=== PATIENT | female | born 1965 | race Caucasian/White ===

== ENCOUNTER 2024-09-07 06:40 | Observation (INO) ==
--- NOTE | 2024-07-18 13:32 | PAT Medication Instructions ---
Medication Instructions Date of Service July 18, 2024 Home Medications albuterol 90 mcg/actuation aerosol inhaler 90 mcg inhalation QID PRN sob cholecalciferol (vitamin D3) 50 mcg (2,000 unit) tablet (Vitamin D3) 50 mcg PO QAM ibuprofen 800 mg tablet 800 mg PO TID PRN Pain lysine 500 mg tablet 500 mg PO DAILY PRN Cold Sores meloxicam 15 mg tablet 15 mg PO QAM methylprednisolone 4 mg tablets in a dose pack (Medrol (Arnaldo)) 4 mg PO DAILY Continue as directed methylprednisolone 4 mg tablets in a dose pack (Medrol (Arnaldo)) 4 mg PO DAILY ASK your surgeon for instructions ibuprofen 800 mg tablet 800 mg PO TID PRN Pain meloxicam 15 mg tablet 15 mg PO QAM STOP taking 2 weeks before surgery (or as soon as possible if surgery is within 2 weeks) lysine 500 mg tablet 500 mg PO DAILY PRN Cold Sores DO NOT take the morning of surgery cholecalciferol (vitamin D3) 50 mcg (2,000 unit) tablet (Vitamin D3) 50 mcg PO QAM Take morning of surgery With a small sip of water, OTHERWISE NOTHING TO EAT OR DRINK AFTER MIDNIGHT: albuterol 90 mcg/actuation aerosol inhaler 90 mcg inhalation QID PRN sob (use if needed; please bring rescue inhaler with you to hospital day of surgery if possible) Take evening before surgery albuterol 90 mcg/actuation aerosol inhaler 90 mcg inhalation QID PRN sob (if needed) Other Notes If you have any questions please call us at [phone] or [phone] or [phone] or [phone]
--- NOTE | 2024-07-29 13:32 | Anesthesiology Consultation ---
Date of Service July 29, 2024 Assessment & Plan (1) Encounter for pre-operative examination: - Infectious disease screening: Per assessment on 07/29/24: No known recent infectious disease contacts or current infectious disease symptoms. - Outpatient joint assessment: Pt currently scheduled for inpatient pathway. If surgeon requests review for outpatient joint pathway, patient is an acceptable candidate for outpatient joint program from anesthesia standpoint pending surgeon's office assessment that patient is motivated, has good support and completes [facility] preop requirements. - Patient acceptable risk for surgery pending surgeon-ordered PCP preop evaluation (Dr. Lee Jacobsen/Bry, 08/17) Chart Review Chart Review: Patient NOT seen in Pre Admission Testing History Surgery Operation Date: 09/07/24 09:00 Proposed Procedures p Left Cemented Total Knee Arthroplasty - Tejas Forman MD Height/Weight Height: 5 ft 6 in Weight: 80 kg Allergies Allergy/AdvReac Type Severity Reaction Status Date / Time No Known Allergies Allergy Verified 07/18/24 12:44 Medications Home Medications Medication Instructions Recorded Confirmed Last Taken albuterol 90 mcg/actuation aerosol 90 mcg inhalation QID PRN sob 07/18/24 07/18/24 Unknown inhaler cholecalciferol (vitamin D3) 50 50 mcg PO QAM 07/18/24 07/18/24 Unknown mcg (2,000 unit) tablet (Vitamin D3) ibuprofen 800 mg tablet 800 mg PO TID PRN Pain 07/18/24 07/18/24 Unknown lysine 500 mg tablet 500 mg PO DAILY PRN Cold Sores 07/18/24 07/18/24 Unknown meloxicam 15 mg tablet 15 mg PO QAM 07/18/24 07/18/24 Unknown Past Medical History Medical History Asthma History of COVID-19 x2 last episode 10/2023 Osteoarthritis Exercise / Class Metabolic Activity II 4-5 Yardwork/Stairs/Walk up hill (one FS (No CP, no SOB)) Past Surgical History Surgical History Hx laparoscopic cholecystectomy 1993 Hx of colonoscopy Past Anesthesia History No Hx of Anesthesia Complications and No Family Hx of Anesthesia Complications History of PONV No Hx of PONV and No Hx of Motion Sickness Social History Smoking Status: Never smoker Do You Dip or Chew Tobacco: No Hx Alcohol Use: Yes alcohol intake frequency: holidays/special occasions only Hx Substance Use: No substance use type: does not use Review of Systems Patient denies chest pain, shortness of breath, dyspnea on exertion, fever, chills, cough, wheezing, palpitations. Physical Exam Vital Signs BP 121/76 P 80 TEMP 97.7 SP02 96%RA RESP 16 Physical Full cervical extension range of motion. Full TMJ range of motion. TMD > 3.5 finger breaths Mallampati Score II Dentition: intact, left lower molar cap Lungs: clear throughout to auscultation Cardiac: regular rate and rhythm, no murmurs noted Spine: normal Carotid arteries: negative bruit Extremities: no LE edema Lab Results Anesthesia Preop Results Results Anesthesia Widget: WBC 7.74 K/ul (4.8-10.8) 07/29/24 Hgb 14.2 g/dl (12.0-16.0) 07/29/24 Hct 42.5 % (37.0-47.0) 07/29/24 Plt 241 K/uL (130-400) 07/29/24 Na 142 mmol/L (136-145) 07/29/24 K 3.8 mmol/L (3.5-5.1) 07/29/24 Cl 106 mmol/L (98-107) 07/29/24 CO2 29 mmol/L (21-32) 07/29/24 BUN 14 mg/dl (6-23) 07/29/24 Creat 0.79 mg/dl (0.6-1.2) 07/29/24 Glucose Level 80 mg/dl (70-99(Fasting)) 07/29/24 PT 10.4 Seconds (9.0-12.0) 07/29/24 PTT 25 Seconds (21-31) 07/29/24 INR 1.0 (0.9-1.1) 07/29/24 Urine Color Yellow 07/29/24 Urine Appearance Clear (Clear) 07/29/24 Urine pH 7.0 (4.5-7.5) 07/29/24 Urine Specific [place] 1.011 (1.000-1.030) 07/29/24 Urine Protein Negative (Negative) 07/29/24 Urine Glucose (UA) Negative (Negative) 07/29/24 Urine Ketones Negative (Negative) 07/29/24 Urine Blood Negative (Negative) 07/29/24 Urine Nitrite Negative (Negative) 07/29/24 Urine Bilirubin Negative (Negative) 07/29/24 Urine Urobilinogen Negative (Negative) 07/29/24 Urine Leukocyte Esterase Trace (Negative) H 07/29/24 Urine WBC (Auto) 0-5 /hpf (0-5) 07/29/24 Urine RBC (Auto) 0-2 /hpf (0-2) 07/29/24 Urine Hyaline Casts (Auto) 0-2 /lpf (0-2) 07/29/24 Urine Epithelial Cells (Auto) 0-2 /hpf (0-2) 07/29/24 Urine Bacteria (Auto) None Seen (None Seen) 07/29/24 Blood Type B Positive 07/29/24 Antibody Screen NEGATIVE 07/29/24 Testing Electrocardiogram Date: 07/29/24 NSR at 78bpm. NS STA. Chest X-Ray Date: 07/29/24 FINDINGS: Lung volumes are normal. Lungs are clear. There is no pneumothorax or pleural effusion. Cardiac size is normal. Mediastinal contours are normal. There is no evidence for pulmonary edema. IMPRESSION: No acute cardiopulmonary findings.
--- NOTE | 2024-09-07 06:31 | History & Physical Bridge Note ---
Date of Service September 07, 2024 History & Physical Bridge Note I have examined the patient, reviewed the History & Physical and in the interval since the performance of the History & Physical I have noted the following changes of clinical significance:consent and site verified.no changes noted
[~2024-09-07 06:40] MED LIST: BUPIVACAINE 0.25% PF 30 ML VIAL ONE; BUPIVACAINE 0.5 % 5 MG/1 ML PF 10ML VIAL ONE
[2024-09-07] MEDS ORDERED: MIDAZOLAM HCL 1 MG/ML 2ML VIAL ONE (07:25)
[2024-09-07] MEDS ORDERED: PROPOFOL IV EMULSION 10 MG/ML 20 ML VIAL IV ONE (07:25)
[2024-09-07] MEDS ORDERED: LIDOCAINE 2% 2 ML VIAL/AMP(20MG/ML) INFIL ONE (07:25)
[2024-09-07] MEDS: LR 60ML/HR IV SCH (07:38)
[2024-09-07] MEDS: LR 500ML BOLUS, THEN 15ML/HR IV SCH (07:58)
[2024-09-07] MEDS ORDERED: ATROPINE SULFATE 0.1 MG/ML 10ML SYR IV PRN (08:15)
[2024-09-07] MEDS ORDERED: ePHEDrine sulfate 50 MG/ML AMP IV PRN (08:15)
[2024-09-07] MEDS ORDERED: fentaNYL citrate PF 100 MCG/2 ML VIAL IV PRN (08:15)
[2024-09-07] MEDS ORDERED: ONDANSETRON INJ 2 MG/ML 2 ML VIAL IV PRN (08:15)
[2024-09-07] MEDS: TRANEXAMIC ACID 1,000 MG **IV Pre-op IV SCH (08:57)
[2024-09-07] MEDS: ceFAZolin 2000MG 2,000 MG/15 ML SYR IV SCH ×2 (09:08→16:51)
[2024-09-07] MEDS ORDERED: KETAMINE HCL 10MG/ML SYR ONE (09:14)
[2024-09-07] MEDS ORDERED: DexMEDEtomidine HCL IV 100 MCG/ML VIAL IV ONE (09:28)
[2024-09-07] MEDS: ORTHO JOINT ANESTHETIC ONE (09:43)
[2024-09-07] MEDS: ROPIVACAINE 0.5% HCL/PF 246 MG, Ketorolac (*for OR use only*) 30 MG, EPINEPHrine 30MG/3... INFIL SCH (09:43)
[2024-09-07] MEDS ORDERED: PHENYLEPHRINE HCL 10 MG/ML VIAL ONE (10:09)
[2024-09-07] MEDS: TRANEXAMIC ACID 1,000 MG **IV Intra-op IV SCH (10:18)
--- NOTE | 2024-09-07 10:44 | Post Operative Brief Note ---
Immediate Post Op Note Date of Surgery September 07, 2024 Pre & Post Diagnosis Operation Date: 09/07/24 08:50 Pre-Op Diagnosis: Left Knee Osteoarthritis Post-Op Diagnosis: Left Knee Osteoarthritis I identified the patient and participated in the time-out.: Yes Procedure Operation Date: 09/07/24 08:50 Actual Procedures p Left Cemented Total Knee Arthroplasty, Cemented(Left) - Tejas Forman MD Surgeon Tejas Forman MD Worm Farmer Manasa/Wanda Estimated Blood Loss 50 Findings Consistent with Post-Op Diagnosis Severe medial disease fixed varus deformity slight flexion deformity Fluids See anesthesia report Complications None
--- NOTE | 2024-09-07 10:48 | Orthopedic Progress Note ---
Date of Service September 07, 2024 Orthopedic Progress Note Patient tolerated left knee replacement well is doing well denies chest pain shortness of breath fever chills nausea vomiting or headache. Vital signs are stable she is afebrile. Neurovascular check is limited by spinal dressing clean dry and intact x-ray pending. Family contacted. Left knee.
--- NOTE | 2024-09-07 10:48 | Operative Report ---
Post Operative Report Pre & Post Diagnosis Operation Date: 09/07/24 08:50 Pre-Op Diagnosis: Left Knee Osteoarthritis Post-Op Diagnosis: Left Knee Osteoarthritis I identified the patient and participated in the time-out.: Yes Procedure Operation Date: 09/07/24 08:50 Actual Procedures p Left Cemented Total Knee Arthroplasty, Cemented(Left) - Tejas Forman MD Surgeon Tejas Forman MD Acute Care Nurse Practitioner Manasa/Wanda Estimated Blood Loss 50 Findings Consistent with Post-Op Diagnosis Severe medial disease varus alignment flexion deformity left knee Fluids See anesthesia report Specimens Bone pathology Drains None Complications None Indications Failed conservative management series of injections etc. progressive change on x-ray bilateral knees left worse than right Description of Procedure After the patient was appropriately identified site verified consent verified antibiotics confirmed as being given TXA confirmed as being given the left lower extremity was prepped and draped use routine fashion. Tourniquet was inflated to 275 mmHg for exsanguination limb with a rubber urgent branch for total of 54 minutes. Midline exposure was utilized parapatellar arthrotomy performed synovectomy completed osteophytes resected. Distal femur entered cruciates resected tibia subluxated menisci resected. Distal femur cut 10 mm proximal tibia cut 4 mm the extension gap was excellent the femur was sized to a size 5 tibia to a size 4. Cutting block was then applied to the femur and the anterior posterior, chamfer cuts then made for a size 5. Flexion gap was then checked and was excellent. Ortho mix was then injected posteriorly. The box cut was then made the seating holes made for the lug holes and the size 5 fit well. The tibia was subluxated and then broached and reamed for a size 4. A 6 mm insert was excellent and full extension full flexion mid range flexion. The patella tracked well. This helped the patella was only about 20 mm thick so minimal resection was made leaving about 13-1/2 mm and the 32 button seating holes made and it tracked well. Ortho mix was then injected all about the remaining aspects of the knee. All trial elements were then removed the wound soaked in Betadine for 3 minutes then irrigated and then permanent cemented into position tibia femur and patella in that order at 12 minutes the tourniquet was deflated minor bleeding points controlled electrocautery. At 14 minutes knee was flexed the spacer removed no cement removal was required wound was irrigated with Pulsavac Betadine and then permanent liner seated knee reduced and closed at 40 degrees of flexion with #2 Vicryl 2-0 Vicryl and standstill clips. Appropriate dressing was then applied the patient transferred to recovery in satisfactory condition having tolerated the procedure well. Patient next of kin system was contacted. Summary of implants size 5 narrow left femur size 4 rotating platform tray size 32 patella size 5 x 6 mm posterior cruciate substituting insert matching the femur. These were all ATT UNE DePuy Synthes total knee system. EBL was 50 cc or less crystalloid per anesthesia DVT prophylaxis per protocol. Bone pathology pending. I attest to the content of the Intraoperative Record and any orders documented therein. Any exceptions are noted below.
--- NOTE | 2024-09-07 10:52 | Discharge Summary ---
Date of Service September 08, 2024 Principal Diagnosis Osteoarthritis left knee Discharge Data Allergies Allergy/AdvReac Type Severity Reaction Status Date / Time No Known Allergies Allergy Verified 09/07/24 06:59 Vaccinations None Consultations None Procedures Performed Operation Date: 09/07/24 08:50 Actual Procedures p Left Cemented Total Knee Arthroplasty, Cemented(Left) - Tejas Froman MD Ordered Studies 09/07/24 05:00 US - OR guided needle placemen Routine Hospital Course (1) Status post left knee replacement: Continue care pathway Plan Continue care management plan Total Time Total Time Spent Total Time Spent (In Minutes): 5 minutes Discharge Plan Discharge Items Patient Disposition: Home - Home Health Services Reason For Visit: Left Knee Osteoarthritis Discharge Diagnosis: Status post left knee replacement for osteoarthritis Condition on Discharge: Good Activity: Per Instructions section Lifting: Wait until after follow-up appointment Bathing: Keep incision dry Sexual Activity: Wait until after follow-up appointment Exercise/Sports: Wait until after follow-up appointment Driving/Machine Use: No driving until cleared by Dr. Forman Weightbearing: Full weightbearing Non-emergency contact: Surgeon Call non-emergency contact if: you have any medication questions, your pain is not controlled, your temperature is above 101, your wound has increased redness, your wound has increased drainage and your wound pain has increased Follow-up/Referrals: Dick Muñoz PA-C [Physician Community Support Professional] - 09/22/24 PCP,NO [Primary Care Provider] - Diet: Regular Addtl Attending Provider Instructions: New Medicine: * You will likely be taking one or more of these medications: 1. Percocet - Take, as directed, when you need it, every four to six hours to control your pain. 2. Iron Sulfate - Take 1x each day for the month after surgery to help you replace the blood lost during surgery. 3. Eliquis - Thins your blood to lessen the chance of forming a blood clot. * The most common side effects of pain medicine and iron are nausea and constipation. If nausea or constipation is too much of a problem or if you have any questions about your new medicines or doses, call [facility] at . We will try to help you manage these issues. "VERY IMPORTANT TO READ AND REVIEW" Blood Clots and Blood Thinning Medicine: * You are given Eliquis during the immediate post-operative period to lessen the risk of blood clots forming in your legs and/or lungs. It is usually given for 4 weeks after surgery. Pain: * The immediate post-operative period after knee replacement surgery is often quite painful. * You are given a prescription for pain medicine. You should take it, as directed, when you need it, especially before physical therapy and before going to bed. Pain that interferes with sleep is very common and can last several months. * You will likely need pain medicine for the first four to six weeks. It will not stop all of the pain. The pain will lessen and as you feel better, you may change to milder pain medicine such as Tylenol. * The most common side effects of pain medicine are nausea and constipation, so don't take more than you need. Physical Therapy: * You will have physical therapy two or three times each week for four to six weeks after your surgery in order to regain your knee range of motion and to retrain your knee to work properly. * It is just as important to make sure you are getting your knee perfectly straight as it is to regain your knee bend. * Taking a pain pill an hour before therapy can help you have a more productive and comfortable therapy session if needed. Home Exercise: * You were shown a series of exercises (heel props, heel slides, etc.) in the hospital. Do these exercises three to four times each day including the exercises you were shown in physical therapy. Walking: * Get up and walk several times each day. For the first four weeks, try not to stand or walk for more than one hour at a time. If you do stand or walk for more than one hour, you will not hurt anything, but your knee and leg will likely swell. * As you feel comfortable, you may change from the walker or crutches to a cane and then to independent walking. SELF CARE INSTRUCTIONS AFTER TOTAL KNEE REPLACEMENT A. You may need to continue a physical therapy program after discharge from the hospital. There are several options available to you. Your doctor will assist you in selecting the best one for you. 1. An out-patient facility 2 to 3 times a week for therapy or home therapy. 2. Continue working on all exercises taught to you in the hospital. Your goals should be to increase bending of your knee to 90 degrees and beyond and to fully straighten your knee. B. You may progress at your own pace from walking with a walker or crutches to a cane; then to no assistive devices. C. Make walking a part of your daily routine. Be up as much as comfortable with rest periods throughout the day. Rest with leg elevation is very important. Use the ice wrap frequently for the first 3-4 weeks. D. There are no restrictions on activities. You may ride in a car, shop, participate in new car driver and all social activities. E. Wear the long elastic stockings (JOSE A hose) 20 hours a day for six weeks after surgery. They can be removed several times a day for laundering and for a shower. F. Do not place a pillow behind your knee when resting. A pillow at your ankle is okay. G. You may return to previous diet. VERY IMPORTANT TO READ AND REVIEW A. Take Eliquis (blood thinning medication) as directed by your doctor. B. There are a few signs you need to watch for after you are home. Call [facility] if you notice any of the followin. Increased severe knee pain. Some pain is expected especially when you exercise. 2. Increased swelling in your leg or knee; pain or swelling of the calf muscle in either lower leg. 3. Any fluid drainage from the incision. 4. Shortness of breath or chest pain. C. Please call [facility] at if you have any concerns or questions about your operation or recovery. The doctor or his nurse will return your call promptly. D. You must take antibiotics before dental work, bladder, bowel or other surgery. Call the office to obtain a prescription at least 2 days prior to your appointment. * CALL IF INCREASED PAIN, REDNESS, DRAINAGE OR FEVER GREATER THAT 101. * Sutures should be removed 12-14 days after surgery unless you are on chronic steroids, then it will be 14-18 days after surgery. Call your doctor if: * Temperature above 101 degrees F. * Pain not relieved by pain medicine ordered. * Increased drainage or redness from incision. * Notify your doctor with any questions or concerns. MEDICATIONS: * Please take your prescriptions as instructed at your pre-op appointment and/or see medication discharge instructions listed above. * If concerns develop, call your physician's office at . SPECIAL CARE INSTRUCTIONS: * Ice/Elevate as instructed. * Keep dressing clean, dry, intact. * Your surgical extremity may be discolored due to prepping agents used on the skin. A bluish-green tint is a normal variant and should not cause alarm. Call your doctor at [phone] if: * Temperature above 101 degrees * Pain not relieved by pain medicine ordered * There is increased drainage or redness from any incision * You have any unanswered questions, problems or concerns. FOLLOW UP VISIT: * If not already scheduled, please call the office at to schedule a follow-up appointment. Use your knee immobilizer when out of bed today and tomorrow. It can be discontinued entirely on Thursday morning. start your Eliquis tonight with dinner. take it 2x day x 4 weeks to prevent blood clots follow up in the office in 2 weeks as scheduled with Dick for staple removal ice and elevate the leg frequently to reduce pain/swelling Pending Studies at Discharge: No Stand-Alone Forms: My [facility], Smoking Cessation Medications and DC Order Prescriptions: No Action ibuprofen 800 mg Tablet 800 mg PO TID PRN (Reason: Pain) meloxicam 15 mg Tablet 15 mg PO QAM albuterol 90 mcg/actuation Aerosol 90 mcg INHALATION QID PRN (Reason: sob) lysine 500 mg Tablet 500 mg PO DAILY PRN (Reason: Cold Sores) cholecalciferol (vitamin D3) [Vitamin D3] 50 mcg (2,000 unit) Tablet 50 mcg PO QAM tramadol 50 mg Tablet 50 mg PO Q6H PRN (Reason: Pain) Admission Data Admit Date/Time: 09/07/24 11:08 Attending Provider: Tejas Forman Admit Provider: Tejas Forman Primary Care Provider: PCP,MITZI
--- NOTE | 2024-09-07 10:54 | Operative Report ---
Post Operative Report Pre & Post Diagnosis Operation Date: 09/07/24 08:50 Pre-Op Diagnosis: Left Knee Osteoarthritis Post-Op Diagnosis: Left Knee Osteoarthritis I identified the patient and participated in the time-out.: Yes Procedure Operation Date: 09/07/24 08:50 Actual Procedures p Left Cemented Total Knee Arthroplasty, Cemented(Left) - Tejas Forman MD Surgeon Tejas Forman MD One Piece Expansion Maker Hand Manasa/Wanda Estimated Blood Loss 50 Findings Consistent with Post-Op Diagnosis Specimens Bone pathology Description of Procedure Patient underwent regional anesthesia, she was brought to the operative suite where she underwent sedation. Left lower extremity was prepped and draped in the usual sterile fashion. A surgical timeout was performed. The patient underwent a left total knee arthroplasty, please see Dr. Forman's operative report for full details. I was present and assisted with limb positioning, patient positioning, soft tissue retraction, bony resection, hardware placement, wound closure, postoperative dressing placement. The patient was awakened and taken to the recovery room in stable condition. I attest to the content of the Intraoperative Record and any orders documented therein. Any exceptions are noted below.
--- NOTE | 2024-09-07 11:12 | XRay Report ---
TWO VIEWS LEFT KNEE CLINICAL HISTORY: Postoperative examination. FINDINGS: AP and crosstable lateral portable views of the left knee are obtained. A left knee arthrop lasty is in near anatomic alignment. There has been undersurface remodeling of the patella. No acute fracture is seen. There are expected postoperative changes around the knee including skin clips, a [place] rgical drain, soft tissue edema, and subcutaneous gas. IMPRESSION: Expected postoperative changes status post left knee arthroplasty. No acute fracture is s een. ACT 112: Negative or not required by law. Electronically signed by: Saeed Barroso M.D. 09/07/2024 11:11 AM
--- OUTSIDE RECORDS SUMMARY | 2024-09-07 11:13 | External Medical Summary | Continuity of Care Document ---
Author Name Unknown Organization [id number] Address [address] [place] [address] [phone] Care Team Providers Care [employer] Sergeant Name Role Phone Lee Jacobsen Primary Care Physician [phone] Encounter [id number] Date(s): 08/15/24 - 08/15/24 [facility] [address] [id number] [facility] [address] [place] [id number] Encounter Diagnosis Osteoarthritis of left knee(Discharge Diagnosis) - 08/15/24 Discharge Disposition: Home or Self Care Attending Physician: AMARA Muñoz, Dick Frausto Referring Physician: MD Dickson, Tejas Gotti Allergies, Adverse Reactions, Alerts No Known Medication Allergies Medications Eliquis 2.5 mg oral tablet Start: 08/15/24 1:20:00 PM EDT, 1 tab, PO, bid, Disp# 56 tab, [facility]: [id number] Start Date: 08/15/24 Stop Date: 09/12/24 Status: Ordered Mobic 15 mg oral tablet Start: 06/27/24 8:29:00 AM EDT, 1 tab, PO, Daily Start Date: 06/27/24 Status: Ordered Motrin 800 mg oral tablet Start: 06/27/24 8:29:00 AM EDT, 1 tab, PO, tid, PRN: as needed for arthritis Start Date: 06/27/24 Status: Ordered traMADol 50 mg oral tablet Start: 08/15/24 12:42:00 PM EDT Start Date: 08/15/24 Status: Ordered Vitamin D2 2000 intl units oral capsule Start: 06/27/24 8:29:00 AM EDT Start Date: 06/27/24 Status: Ordered Mental Status 08/15/24 Barriers to Learning one year None evide nt Mandatory Health Literacy Documentation Yes Health Literacy Communication Barriers N ever Primary Language Burundian Problem List Condition Confirmation Course Effective Dates Status H ealth Status Informant Bilateral primary osteoarthritis of knee Confirmed Active Diagnosis Diagnosis Type Effective Dates Health Status Clinical Service Informant Osteoarthritis of left knee Discharge Diagnosis 08/15/24 Vital Signs Most recent to oldest [Reference Range]: 1 Height 167 cm (08/15/24 12:45 PM) Patient Weight 81 kg (08/15/24 12:45 PM) Body Mass Index 29.04 kg/m2 (08/15/24 12:45 PM) Temperature [36.5-37.9 DegC] 36.4 DegC *LOW* (08/15/24 12:45 PM) Heart Rate 70 bpm (08/15/24 12:45 PM) Blood Pressure 126/78mmHg (08/15/24 12:45 PM) Cuff Pulse Pressure 48 mmHg (08/15/24 12:45 PM) Social History Social History Type Response Smoking Status Never smoked cigaret kennedy Sex Female Sex Representation Female (finding) History and physical note * AMARA Gusman [place]: PERFORM Event Display: H&P Authored Date: [id number] Primary Care Provider MD Ann-Marie, Lee Referring Provider MD Dickson, Tejas Gotti Chief Complaint L knee pre op History of Present Illness Patient is a 59-year-old female here today for preoperative history and physical for left total knee arthroplasty with Dr. Forman. She initially started having left knee pain in 2018 and it has since progressed to bilateral knee pain. She notes her left knee is worse than her right. She is limited in her activity due to pain and even has pain at rest.She has tried corticosteroid injections and NELSON injections previously. She had a Durolane injection on 03/01/2024nd did not get any relief from this. She takes Meloxicam daily for pain. She is taking Vitamin D supplements due to recent DEXA scan showing osteopenia of the spine. [1] Review of Systems DeniesRecent illnesses, colds/flu, pneumonia, COVID or COVID exposures; DeniesFevers, chills, malaise; DeniesChest pain, heart palpitations; DeniesShortness of breath, cough; DeniesHeadacheor blurry vision; DeniesAbdominal pain, nausea, vomiting, diarrhea, or urinary symptoms Physical Exam Vitals & Measurements T:36.4C HR:70(Monitored) BP:126/78 SpO2:97% HT:167cm WT:81kg WT:81.000kg(Dosing) BMI:29.04 General: Pt is well nourished, seated on the exam table AA&O, in NAD, calm and cooperative during exam HENT: Nontraumatic, no gross deformity, hearing and vision grossly in-tact, PERRL Heart: +S1, +S2, RRR, no murmurs appreciated Lungs: CTABL, no wheezing appreciated Focusing on left lower extremity:Gross motor function is intact. Strength is intact. Range ofmotion 0 to 120 degrees. No major swelling. MCL LCL intact to varus and valgus stress. [2] Diagnostic Results Review of outside x-rays reveals varus alignment bilaterally. There is sign joint medial compartment both knees. Tunnel views reveal bone on bone arthritismedial compartment. [3] Assessment/Plan 1.Osteoarthritis of left knee Preop The risks and benefits of surgery as well as the post operative course was explained and discussed with the patient. Written consent obtained. The patient's past medical history, surgeries, social history, medication list, allergies and PDMP were reviewed and confirmed with the patient. Patientobt ainedmedical clearance. Patient's preoperative testing and labs were unremarkable. Preoperative orders were placed. We discussed postoperative pain medications includingPercocet,as well as icing and elevating to control pain. DVT prophylaxis Eliquis-2.5 mg twice a day for 4 weeksthen switch to aspirin. Additional medications -stool softener as needed to prevent constipation while on narcotics. The patient has been scheduled for post operative appointments. Prescription for physical therapy and home healthwas placed. The patient was given a preoperative booklet and we reviewed the most pertinent things leading up to the surgery and the day of surgery; including any assisted devices pt may need, when/who to call for the surgery time, where to arrive the day of surgery,NPO after midnight, medications to hold, prepping the skin with CHG to prevent infection etc. Allof their questions and concerns were answered today. They were instructed to call our office if they have any further questions or concerns. Problem List/Past Medical History Ongoing Bilateral primary osteoarthritis of knee Medications apixaban(Eliquis 2.5 mg oral tablet), 2.5 mg= 1 tab, PO, bid ergocalciferol(Vitamin D2 2000 intl units oral capsule) ibuprofen(Motrin 800 mg oral tablet), 800 mg= 1 tab, PO, tid, PRN meloxicam(Mobic 15 mg oral tablet), 15 mg= 1 tab, PO, Daily traMADol(traMADol 50 mg oral tablet) Allergies No Known Medication Allergies Social History Smoking Status Never smoked cigarettes Recommendations Health Maintenance Pending(in the next year) OverDue Adult Influenza Vaccine due05/29/24and every 1year Due Adult COVID-19 Vaccination due08/17/24Unknown Frequency Adult Social Determinants of Health Screening due08/17/24Unknown Frequency Adult Tdap/Td Vaccine due08/17/24Unknown Frequency Breast Cancer Screening due08/17/24Unknown Frequency Cervical Cancer Screening due08/17/24Unknown Frequency Colorectal Cancer Screening due08/17/24Unknown Frequency Hepatitis C Screening due08/17/24One-time only Lipid Screening due08/17/24Unknown Frequency Shingles Vaccine due08/17/24One-time only Due In Future Body Mass Index not due until08/16/25and every Satisfied(in the past 1 year) Satisfied Body Mass Index on08/15/24.Satisfied by SARINA Clark Kennie L [1]Tejas Forman; Megan Wilks 06/27/2024 08:10 EDT [2]Tejas Forman Kayleigh 06/27/2024 08:10 EDT [3]Tejas Forman Kayleigh 06/27/2024 08:10 EDT Electronic Signature on File Electronically Reviewed/Signed by: Emelyn Gusman PA-C Author Signature Dt/Tm:08/17/2024 02:44 PM Physician Repair Service Dispatcher, Dept. of Orthopaedics and Sports Medicine [facility] - [address], [address] [place] [id number] Electronically Reviewed/Signed by: Tejas Forman MD Cosignmiladis Signature Dt/Tm: 08/17/2024 03:29 PM Filter Tender Jelly for Clinical Affairs, [facility] Sandrita Professor in Orthopaedics Animal Keeper Head, [facility] Sports Medicine Patient Care team information Care Team Personnel Name: MD Jacobsen Tamrat Position: Referring Member Role: Primary Care Provider Address: [address] [place] [address]
--- NOTE | 2024-09-07 12:06 | Anesthesiology Progress Note ---
Date of Service September 07, 2024 Anesthesia Post Procedure Vital Signs Vital Signs: Temp Pulse Pulse Resp BP Pulse Ox O2 Del Method 09/07/24 12:00 74 13 103/65 98 Room Air 09/07/24 11:50 74 12 94/59 L 99 Room Air 09/07/24 11:40 36.4 C L 79 16 106/64 96 Room Air 09/07/24 11:30 79 12 105/69 97 Room Air 09/07/24 11:20 78 18 103/63 100 Oxymask 09/07/24 11:10 82 12 104/64 100 Oxymask 09/07/24 11:00 82 12 109/65 100 Oxymask 09/07/24 10:54 37.0 C 102 H 16 107/59 L 96 Oxymask 09/07/24 07:13 36.8 C 99 H 20 137/80 98 Room Air O2 Flow Rate 09/07/24 12:00 09/07/24 11:50 09/07/24 11:40 09/07/24 11:30 09/07/24 11:20 2 09/07/24 11:10 2 09/07/24 11:00 4 09/07/24 10:54 6 09/07/24 07:13 Pain Intensity Left Knee: Pain Intensity: 5 Transfer of Care Handoff Completed per policy Notes Mental Status: alert / awake / arousable Patient Amnestic to Procedure: Yes Nausea / Vomiting: adequately controlled Pain: adequately controlled Airway Patency, RR, SpO2: stable & adequate BP & HR: stable & adequate Hydration State: stable & adequate Neuraxial Anesthesia: was administered and sensory block is resolving Anesthetic Complications: no major complications apparent and Pt Satisfied with anesthetic care
[2024-09-07] MEDS ORDERED: HYDROmorphone INJ 0.5 MG/0.5 ML SYR IV PRN (12:20)
[2024-09-07] MEDS ORDERED: MAGNESIUM HYDROXIDE SUSP 30 ML UDC PO PRN (12:20)
[2024-09-07] MEDS ORDERED: METOCLOPRAMIDE HCL INJ 5 MG/ML 2 ML VIAL IV PRN (12:20)
[2024-09-07] MEDS ORDERED: diphenhydrAMINE 50 MG/ML VIAL IV PRN (12:20)
[2024-09-07] MEDS ORDERED: ALUMINUM/MAGNESIUM SUSP 30 ML UDC PO PRN (12:20)
[2024-09-07] MEDS ORDERED: bisacodyL 10 MG SUPP PR PRN (12:20)
[2024-09-07] MEDS ORDERED: NALOXONE HCL 0.4 MG/1 ML VIAL/CARP IV PRN (12:20)
[2024-09-07] MEDS ORDERED: ALBUTEROL HFA 8 GM INHALER INH PRN (12:30)
[2024-09-07] MEDS: SODIUM CHLORIDE 0.9% 1,000 ML IV SCH (13:04)
[2024-09-07] MEDS: KETOROLAC TROMETHAMINE 15 MG/ML VIAL IV SCH (13:04)
--- NOTE | 2024-09-07 13:55 | Operative Report ---
Post Operative Report Pre & Post Diagnosis Operation Date: 09/07/24 08:50 Pre-Op Diagnosis: Left Knee Osteoarthritis Post-Op Diagnosis: Left Knee Osteoarthritis I identified the patient and participated in the time-out.: Yes Procedure Operation Date: 09/07/24 08:50 Actual Procedures p Left Cemented Total Knee Arthroplasty, Cemented(Left) - Tejas Forman MD Surgeon WAYNE Forman MD Concession Supervisor Manasa/Wanda MALONEY Estimated Blood Loss 50 Findings Consistent with Post-Op Diagnosis see operative report Specimens see operative report Drains none Complications none Disposition Accompanied Patient To Recovery: Yes Indications This 59 year old female presented to the office with complaints of persisting left knee pain. She had tried conservative care measures without improvement. She elected to proceed with surgical intervention after being educated about potential risks and outcomes. Preoperative imaging was obtained. Description of Procedure The patient was administered a spinal anesthetic and then taken to the operating room where she was given sedation. She was prepped and draped in the usual sterile fashion. Please see Dr. Forman's operative report for specifics of the procedure. I was present for the entire case from initial patient positioning through final wound closure. Assistance was provided in tissue retraction, hemostasis, trial implant placement, final implant placement, and final wound closure. The patient was taken to the recovery room in satisfactory condition. I attest to the content of the Intraoperative Record and any orders documented therein. Any exceptions are noted below.
--- NOTE | 2024-09-07 14:06 | Orthopedic Progress Note ---
Date of Service September 07, 2024 Assessment & Plan Admission and Anticipated Discharge Date Admission Date: September 07, 2024 Orthopedic Progress Note Afternoon rounds postop check on the floor. She is doing well denies chest pain shortness of breath fever chills nausea vomiting or headache. Vital signs are stable she is on room afebrile. Neurovascular check is normal femoral sciatic nerve. Wound dressing clean dry and intact. Emphasized exercises. Assessment doing well continue care pathway discharge home tomorrow begin anticoagulation tomorrow. Postop x-rays look excellent look excellent. Saline lock IV.
[2024-09-07] MEDS: ACETAMINOPHEN 500 MG TAB PO SCH (14:11)
[2024-09-07] MEDS: FERROUS GLUCONATE 324 MG TAB PO SCH (16:50)
[2024-09-07] MEDS: ASCORBIC ACID 500 MG TAB PO SCH (16:51)
[2024-09-07] MEDS: oxyCODONE HCL IR 5 MG TAB (IMMEDIATE RELEASE) PO PRN (16:54)
[2024-09-07] MEDS: SENNA 8.6 MG TAB PO SCH (21:07)
[2024-09-07] MEDS: DOCUSATE SODIUM 100 MG CAP PO SCH (21:07)
[2024-09-08] MEDS: ONDANSETRON INJ 2 MG/ML 2 ML VIAL IV PRN (05:02)
[2024-09-08 06:21] LABS: Hematocrit (blood only) 33.9 % (37.0-47.0); Hemoglobin 11.4 g/dl (12.0-16.0); Mean Corpuscular Hemoglobin 28.1 pg (25.0-34.0); Mean Corpuscular Hgb Conc 33.6 g/dL (32.0-36.0); Mean Corpuscular Volume 83.7 fL (80.0-100.0); Mean Platelet Volume 9.3 fL (9.4-12.4); Platelet Count 190 K/uL (130-400); RDW Coefficient of Variation 12.4 % (11.5-14.5); RDW Standard Deviation 37.5 fL (36.4-46.3); Red Blood Count 4.05 M/uL (4.20-5.40); White Blood Count 10.68 K/ul (4.8-10.8)
[2024-09-08 06:43] LABS: BUN Creatinine Ratio 14.7 (10-20); Calcium 8.6 mg/dl (8.6-10.3); Potassium 3.9 mmol/L (3.5-5.1)
[2024-09-08 07:08] VITALS: BP 107/68; PULSE 85; RESP 17; TEMP 98.2; O2SAT 97
--- NOTE | 2024-09-08 07:35 | Orthopedic Progress Note ---
Date of Service September 08, 2024 Assessment & Plan Admission and Anticipated Discharge Date Admission Date: September 07, 2024 Orthopedic Progress Note Postop day #1 status post left total knee replacement. Patient is doing well. She denies chest pain shortness breath fever chills. Had some minor nausea is controlled with Zofran. She relates to the pain medication. Vital signs are stable she is afebrile. Neurovascular check femoral sciatic nerve is normal. Can do a straight leg raise well. Hematocrit stable at 33.9. Assessment doing well status post left total knee replacement plan is for discharge home today with services. Begin Elipankajis today.
[2024-09-08] MEDS: MULTIVITAMIN TAB PO SCH (08:46)
[2024-09-08] MEDS: dexAMETHasone 10 MG in SYRINGE 0 ML IV SCH (08:47)
[2024-09-08] MEDS: APIXABAN 2.5 MG TAB PO SCH (08:47)
--- NOTE | 2024-09-08 09:27 | Orthopedic Progress Note ---
Date of Service September 08, 2024 Assessment & Plan (1) Status post left knee replacement: Plan: Plan to discharge patient today White blood cell count 10.68, hemoglobin 11.4. No electrolyte abnormalities. Normal renal function. Dressing change performed today 09/08/2024. Keep dry until wound check appointment in 2 weeks. Vlad stocking applied. Knee immobilizer 09/08 and 09/09/2024, then discontinue. Use walker when ambulating. Elevation, ice, pain medication. Eliquis twice daily for 1 month. Home health for 2 weeks. Follow-up at scheduled appointment in 2 weeks for wound check and staple removal. Education provided on signs and symptoms of infection. Admission and Anticipated Discharge Date Admission Date: September 07, 2024 Subjective Patient seen in the room this morning. She is overall doing well. Pain is well-controlled. She has been up with physical therapy. She denies any difficulty moving her ankle or toes. Her friend is here with her from [place] and she feels that she is able to be discharged today. Denies any chest pain, shortness of breath, abdominal pain. She has no other concerns. Physical Exam Physical Exam: CONSTITUTIONAL: Resting comfortably in bed sitting upright, pleasant, in no acute distress. CARDIOVASCULAR: Left PT and DP pulses 2+ MUSCULOSKELETAL: Left lower extremity: Knee anterior vertical incision is intact with no active discharge or hemorrhage. Anabela are in place. There is no dehiscence. There is no significant surrounding erythema. There is mild edema around the knee with minimal ecchymosis. Active ankle plantarflexion and dorsiflexion is intact. Able to move all toes. Able to perform straight leg raise. Full extension at the knee. NEUROLOGIC: No sensory deficits in left lower extremity to light touch Results & Data Vital Signs (Past 12 Hours) Vital Signs Temp Pulse Resp BP Pulse Ox O2 Del Method 09/08/24 07:07 98.2 F 85 17 107/68 97 Room Air 09/08/24 03:06 98.1 F 79 16 105/67 96 Room Air 09/07/24 23:07 98.2 F 75 16 107/71 94 Room Air Laboratory Results Laboratory Results WBC 10.68 K/ul (4.8-10.8) 09/08/24 05:51 RBC 4.05 M/uL (4.20-5.40) L 09/08/24 05:51 Hgb 11.4 g/dl (12.0-16.0) L 09/08/24 05:51 Hct 33.9 % (37.0-47.0) L 09/08/24 05:51 MCV 83.7 fL (80.0-100.0) 09/08/24 05:51 MCH 28.1 pg (25.0-34.0) 09/08/24 05:51 MCHC 33.6 g/dL (32.0-36.0) 09/08/24 05:51 RDW Std Deviation 37.5 fL (36.4-46.3) 09/08/24 05:51 RDW Coeff of Rula 12.4 % (11.5-14.5) 09/08/24 05:51 Plt Count 190 K/uL (130-400) 09/08/24 05:51 MPV 9.3 fL (9.4-12.4) L 09/08/24 05:51 Sodium 139 mmol/L (136-145) 09/08/24 05:51 Potassium 3.9 mmol/L (3.5-5.1) 09/08/24 05:51 Chloride 106 mmol/L (98-107) 09/08/24 05:51 Carbon Dioxide 28 mmol/L (21-32) 09/08/24 05:51 Anion Gap 5 (3-11) 09/08/24 05:51 BUN 11 mg/dl (6-23) 09/08/24 05:51 Creatinine 0.75 mg/dl (0.6-1.2) 09/08/24 05:51 Est Cr Clr Drug Dosing 85.0 ml/min 09/08/24 05:51 eGFR 91.65 09/08/24 05:51 BUN/Creatinine Ratio 14.7 (10-20) 09/08/24 05:51 Glucose 118 mg/dl (70-99(Fasting)) H 09/08/24 05:51 Calcium 8.6 mg/dl (8.6-10.3) 09/08/24 05:51 Impressions Diagnostic Findings Knee X-Ray 09/07/24 10:42 TWO VIEWS LEFT KNEE CLINICAL HISTORY: Postoperative examination. FINDINGS: AP and crosstable lateral portable views of the left knee are obtained. A left knee arthroplasty is in near anatomic alignment. There has been undersurface remodeling of the patella. No acute fracture is seen. There are expected postoperative changes around the knee including skin clips, a surgical drain, soft tissue edema, and subcutaneous gas. IMPRESSION: Expected postoperative changes status post left knee arthroplasty. No acute fracture is seen. ACT 112: Negative or not required by law. Electronically signed by: Saeed Barroso M.D. 09/07/2024 11:11 AM
== END 2024-09-08 10:18 | disposition home health service (06) ==
LOC: 3E 06:40 → ASU 06:40